=== PATIENT | female | born 1960 | race Caucasian/White ===

== ENCOUNTER 2019-06-19 17:55 | Emergency (ER) | payer BC, OTHER ==
[~2019-06-19] VITALS: Ht 154.9 cm; Wt 69.0 kg
--- NOTE | 2019-06-19 18:18 | NUR ---
AWAITING ED PROVIDER.
[2019-06-19 18:34] LABS: BASOPHILS % (AUTO) 0.3 % (0-1); EOSINOPHILS # (AUTO) 0.1 X10'3 (0-0.9); EOSINOPHILS % (AUTO) 1.6 % (0-6); HEMATOCRIT 40.5 % (35.0-45.0); HEMOGLOBIN 13.8 g/dl (12.0-16.0); LYMPHOCYTES # (AUTO) 3.8 X10'3 (1.1-4.8); LYMPHOCYTES % (AUTO) 49.3 % (21-51); MEAN CORPUSCULAR HEMOGLOBIN 33.4 PG (27.0-31.0); MEAN CORPUSCULAR HGB CONC 34.1 g/dL (33.0-36.5); MEAN CORPUSCULAR VOLUME 97.9 FL (78-98); MEAN PLATELET VOLUME 7.4 FL (7.4-10.4); MONOCYTES # (AUTO) 0.7 X10'3 (0-0.9); MONOCYTES % (AUTO) 8.8 % (2-12); NEUTROPHILS # (AUTO) 3.1 X10'3 (1.8-7.7); PLATELET COUNT 312 X10'3 (140-440); RED BLOOD COUNT 4.14 X10'6 (4.20-5.60); RED CELL DISTRIBUTION WIDTH 12.8 % (11.5-14.5); WHITE BLOOD COUNT 7.7 X10'3 (4.5-11.0)
[2019-06-19] MEDS ORDERED: morphine 4 MG/ML inj SYRINge IV ONE (18:40)
[2019-06-19] MEDS ORDERED: ondansetron/PF 4mg/2ml inj IV ONE (18:40)
[2019-06-19 18:41] LABS: CLARITY,URINE CLEAR (Clear); COLOR,URINE YELLOW (Yellow); GLUCOSE, URINE NEGATIVE (Neg); KETONES,URINE NEGATIVE (Neg); LEUKOCYTE ESTERASE ,URINE NEGATIVE (Neg); NITRITES, URINE NEGATIVE (Neg); OCCULT BLOOD,URINE NEGATIVE (Neg); PROTEIN,URINE NEGATIVE (Neg); UROBILINOGEN,URINE 0.2 E.U/dL (0.2-1.0)
[2019-06-19 18:42] LABS: UA COLLECTION TYPE CLN CATCH MIDSTREAM
[2019-06-19 18:45] LABS: URINE HCG NEGATIVE (NEG)
[2019-06-19 18:49] LABS: ALANINE AMINOTRANSFERASE 27 U/L (12-78); ALBUMIN 3.8 G/DL (3.4-5.0); ALKALINE PHOSPHATASE 64 IU/L (46-116); ANION GAP 10 (8-16); ASPARTATE AMINO TRANSFERASE 22 U/L (10-37); BILIRUBIN,TOTAL 0.2 MG/DL (0.1-1.0); BLOOD UREA NITROGEN 9 MG/DL (7-18); BUN/CREATININE RATIO 9.8 (6.6-38.0); CALCIUM 8.5 MG/DL (8.5-10.1); CHLORIDE 105 MMOL/L (99-107); CREATININE 0.92 MG/DL (0.40-0.90); GLUCOSE 101 MG/DL (70-104); LIPASE 121 U/L (73-393); POTASSIUM 3.5 MMOL/L (3.5-5.1); SODIUM 144 MMOL/L (135-145); TOTAL CARBON DIOXIDE 28.8 MMOL/L (24-32); TOTAL PROTEIN 7.5 G/DL (6.4-8.2); eGFR 62 ML/MIN
[2019-06-19] MEDS ORDERED: fentaNYL/PF 50MCG/1 ML 2ML syringe IV ONE (19:00)
--- NOTE | 2019-06-19 19:12 | NUR ---
100 [facility] FENTANYL TO ASSIST IN REDUCTION OF HERNIA
[2019-06-19] MEDS ORDERED: ketorolac trometh. 30mg/ml inj. IV ONE (20:20)
[2019-06-19 20:49] VITALS: BP 128/76
== END 2019-06-19 20:59 | disposition home or self-care (01) ==
LOC: ER 17:56
DX: K43.9 Ventral hernia without obstruction or gangrene (principal); Z88.1 Allergy status to other antibiotic agents
CPT/HCPCS: 36415; 74176; 80053; 81003; 81025; 83690; 85025; 93005; 96374; 96375; 99284; J1885; J2270; J2405; J3010

== ENCOUNTER 2023-12-19 12:18 | Outpatient (CLI) | payer MEDICARE, MEDICAID ==
[~2023-12-19 12:18] MED LIST: ASPI-611 PO; OXYB10TA30 PO; PER5325T PO
== END 2023-12-19 23:59 | disposition home or self-care (01) ==
LOC: RAD 12:18
PROVIDERS: ATTEND Nurse Practitioner Primary Care
DX: M54.2 Cervicalgia (principal)
CPT/HCPCS: 72050

== ENCOUNTER 2024-01-27 12:09 | Outpatient (CLI) | payer MEDICARE, MEDICAID | END 2024-01-27 23:59 | disposition home or self-care (01) | LOC: RAD 12:09 | PROVIDERS: ATTEND Nurse Practitioner Primary Care | DX: M54.2 Cervicalgia (principal) | CPT/HCPCS: 72040 ==

== ENCOUNTER 2025-07-20 07:01 | Day surgery (SDC) | payer MEDICARE, MEDICAID ==
[~2025-07-20] VITALS: Ht 152.4 cm; Wt 68.0 kg
[2025-07-20] VITALS (7 sets, daily range): BP systolic 111–146; BP diastolic 61–88; PULSE 52–80; RESP 12–24; TEMP 97.8; O2SAT 96–99
[~2025-07-20 07:01] MED LIST changes: -ASPI-611 PO; +BUDE10.7 PO; +HYDR-3964 PO; +LISI5TAB22 PO; +METF-900 PO; +METO-395 PO; +MULTI VITAMIN; +PANT40TA54 PO; -PER5325T PO
[2025-07-20] MEDS ORDERED: LIDOcaine 2% Viscous 15ml cup ONE (08:00)
[2025-07-20] MEDS ORDERED: propofol inj 20 ML IV ONE ×2 (09:36)
[2025-07-20] MEDS: HYDROcodone/acetaminophen 5mg/325mg tablet PO ONE (10:30)
== END 2025-07-20 10:45 | disposition home or self-care (01) ==
LOC: PAS 07:01
PROVIDERS: ATTEND Internal Medicine Gastroenterology
DX: R10.11 Right upper quadrant pain (principal); R10.13 Epigastric pain; K31.89 Other diseases of stomach and duodenum; I10 Essential (primary) hypertension; E78.5 Hyperlipidemia, unspecified; G47.30 Sleep apnea, unspecified; J44.9 Chronic obstructive pulmonary disease, unspecified; K21.9 Gastro-esophageal reflux disease without esophagitis; E66.3 Overweight; Z88.1 Allergy status to other antibiotic agents; Z79.84 Long term (current) use of oral hypoglycemic drugs; Z79.899 Other long term (current) drug therapy; Z68.29 Body mass index [BMI] 29.0-29.9, adult; Z87.891 Personal history of nicotine dependence; Z98.890 Other specified postprocedural states
CPT/HCPCS: 43239; A4615; J2704; J7120; Z7512; Z7610